=== PATIENT | female | born 1965 | race African-American/Black ===

== ENCOUNTER 2018-09-07 08:01 | Emergency (ER) | payer OTHER ==
[~2018-09-07] VITALS: Ht 167.6 cm; Wt 93.9 kg
[~2018-09-07 08:01] MED LIST: NOHOMEMEDICATIONS; NORCO 5-325 TA1 EACH PO; PENICILLIN VK500 M1 PO; PRILOSEC 20 MG20 MG PO; PROTONIX40 M1 PO
[2018-09-07] MEDS ORDERED: PENICILLIN V P500 MG PO (09:03)
[2018-09-07] MEDS ORDERED: TRAMADOL 50 MG50 MG PO (09:03)
[2018-09-07 09:22] VITALS: BP 139/84
== END 2018-09-07 09:23 | disposition home or self-care (01) ==
LOC: ER 08:01
DX: K04.7 Periapical abscess without sinus (principal); K02.9 Dental caries, unspecified; K21.9 Gastro-esophageal reflux disease without esophagitis